=== PATIENT | male | born 1950 | race Caucasian/White ===

== ENCOUNTER 2019-11-22 13:52 | Emergency (ER) | payer OTHER ==
--- NOTE | 2019-11-22 14:23 | RAD REPORT ---
EXAM DESCRIPTION: RAD - Chest Single View - 11/22/2019 2:18 pm CLINICAL HISTORY: synocpe Chest pain. COMPARISON: No comparisons FINDINGS: Portable technique limits examination quality. Interstitial markings are mildly prominent. No focal consolidation typical of pneumonia seen. The hea rt is normal in size. No displaced fractures.
[2019-11-22] MEDS ORDERED: MECLIZINE HCL 12.5 MG TAB ONE (14:31)
[2019-11-22] MEDS ORDERED: ONDANSETRON 4 MG/2 ML VIAL ONE ×2 (14:31→16:02)
[2019-11-22 14:51] LABS: Protime INR 1.07
[2019-11-22 14:52] LABS: Absolute Lymphocytes (CBC) 1.8 K/uL (0.7-4.9); Basophils % 0.6 % (0-1.3); Hematocrit 39.7 % (39.6-49.0); Lymphocytes % 29.5 % (15.3-44.8); MPV 8.9 fL (7.6-11.3); RBC Red Blood Cell Count 4.17 M/uL (4.33-5.43)
--- NOTE | 2019-11-22 14:52 | RAD REPORT ---
EXAM DESCRIPTION: CT - Head Brain Wo Cont - 11/22/2019 2:44 pm CLINICAL HISTORY: DIZZINESS Headache, drowsiness, syncope COMPARISON: No comparisons TECHNIQUE: All CT scans are performed using dose optimization technique as appropriate and may inclu de automated exposure control or mA/KV adjustment according to patient size. FINDINGS: No intracranial hemorrhage, hydrocephalus or extra-axial fluid collection.No areas of brai n edema or evidence of midline shift. The paranasal sinuses and mastoids are clear. The calvarium is intact. IMPRESSION: No acute intracranial abnormality.
[2019-11-22 14:54] LABS: ALT/SGPT 32 U/L (12-78); AST/SGOT 28 U/L (15-37); Albumin 3.1 g/dL (3.4-5.0); Alkaline Phosphatase 44 U/L (45-117); BUN Blood Urea Nitrogen 20 mg/dL (7-18); Bicarbonate 26 mmol/L (21-32); Bilirubin Direct 0.2 mg/dL (0-0.2); Bilirubin Total 0.8 mg/dL (0.2-1.0); Glucose Level 143 mg/dL (74-106); Magnesium 1.8 mg/dL (1.8-2.4); NT PRO-BNP 61 pg/mL (<125); Potassium 3.4 mmol/L (3.5-5.1); Protein, Total 6.3 g/dL (6.4-8.2); Sodium Level 141 mmol/L (136-145); Troponin (Emerg Dept Use Only) < 0.02 ng/mL (0.0-0.045)
[2019-11-22] MEDS ORDERED: POTASSIUM CL SA 10 MEQ TAB PO ONE (16:02)
--- NOTE | 2019-11-22 16:33 | EDPHYS ---
Physician Documentation [facility] Name: Jori Holliday Age: 69 yrs Sex: Male : 1950 Arrival Date: 11/22/2019 Time: 13:58 Bed 19 Private MD: ED Physician Saqib Herr HPI: 11/21 14:45 This 69 yrs old Male presents to ER via EMS with complaints of Syncope. jr8 14:45 The patient has experienced syncope, collapsed. Onset: The symptoms/episode jr8 began/occurred acutely, today. Duration: This was a single episode, that lasted an unknown period of time. Context: occurred at a store, occurred while the patient was standing. Associated injury: The patient did not suffer any apparent associated injury. Associated signs and symptoms: Pertinent positives: dizziness. Current symptoms: Currently, the patient is not experiencing any symptoms, the patient feels back to baseline, no decreased level of consciousness, no confusion, no dysphasia, no headache, no paralysis, no visual changes. The patient has not experienced similar symptoms in the past. The patient has not recently seen a physician. Denies n/v/d or recent illness. Denies recent sick contacts or recent travel. Stated that he had felt well over the past several days. Historical: - Allergies: 14:06 PENICILLINS; em - PMHx: 14:06 Hyperlipidemia; Hypothyroidism; em - Immunization history:: Adult Immunizations up to date. - Social history:: Smoking status: Patient denies any tobacco usage or history of. ROS: 14:45 Eyes: Negative for injury, pain, redness, and discharge, ENT: Negative for injury, jr8 pain, and discharge, Neck: Negative for injury, pain, and swelling, Cardiovascular: Negative for chest pain, palpitations, and edema, Respiratory: Negative for shortness of breath, cough, wheezing, and pleuritic chest pain, Abdomen/GI: Negative for abdominal pain, nausea, vomiting, diarrhea, and constipation, Back: Negative for injury and pain, MS/Extremity: Negative for injury and deformity, Skin: Negative for injury, rash, and discoloration. 14:45 Neuro: Positive for dizziness, syncope. Exam: 14:45 Head/Face: Normocephalic, atraumatic. Eyes: Pupils equal round and reactive to light, jr8 extra-ocular motions intact. Lids and lashes normal. Conjunctiva and sclera are non-icteric and not injected. Cornea within normal limits. Periorbital areas with no swelling, redness, or edema. ENT: Nares patent. No nasal discharge, no septal abnormalities noted. Tympanic membranes are normal and external auditory canals are clear. Oropharynx with no redness, swelling, or masses, exudates, or evidence of obstruction, uvula midline. Mucous membranes moist. Neck: Trachea midline, no thyromegaly or masses palpated, and no cervical lymphadenopathy. Supple, full range of motion without nuchal rigidity, or vertebral point tenderness. No Meningismus. Cardiovascular: Regular rate and rhythm with a normal S1 and S2. No gallops, murmurs, or rubs. Normal PMI, no JVD. No pulse deficits. Respiratory: Lungs have equal breath sounds bilaterally, clear to auscultation and percussion. No rales, rhonchi or wheezes noted. No increased work of breathing, no retractions or nasal flaring. Abdomen/GI: Soft, non-tender, with normal bowel sounds. No distension or tympany. No guarding or rebound. No evidence of tenderness throughout. Back: No spinal tenderness. No costovertebral tenderness. Full range of motion. Skin: Warm, dry with normal turgor. Normal color with no rashes, no lesions, and no evidence of cellulitis. MS/ Extremity: Pulses equal, no cyanosis. Neurovascular intact. Full, normal range of motion. Neuro: Awake and alert, GCS 15, oriented to person, place, time, and situation. Cranial nerves II-XII grossly intact. Motor strength 5/5 in all extremities. Sensory grossly intact. Cerebellar exam normal. Normal gait. Vital Signs: 13:59 BP 122 / 80; Pulse 66; Resp 18; Temp 97.7; Pulse Ox 99% on R/A; Weight 74.84 kg; Height em 5 ft. 9 in. (175.26 cm); Pain 0/10; 13:59 Body Mass Index 24.37 (74.84 kg, 175.26 cm) em MDM: 14:02 Patient medically screened. jr8 16:29 Differential Diagnosis: cardiac arrhythmia, cerebrovascular accident, drug effect, jr8 emotional response, GI bleed, idiopathic syncope, pseudo seizure, seizure, sepsis, transient ischemic attack, vasovagal episode. Data reviewed: vital signs, nurses notes, lab test result(s), EKG, radiologic studies, CT scan, plain films, and as a result, I will discharge patient. Data interpreted: Pulse oximetry: on room air is 99 %. Interpretation: normal. Counseling: I had a detailed discussion with the patient and/or guardian regarding: the historical points, exam findings, and any diagnostic results supporting the discharge/admit diagnosis, lab results, radiology results, the need for outpatient follow up, a family practitioner, to return to the emergency department if symptoms worsen or persist or if there are any questions or concerns that arise at home. Response to treatment: the patient's symptoms have resolved after treatment, patient is well hydrated. 11/21 14:03 Order name: Basic Metabolic Panel; Complete Time: 15: [facility] 11/21 14:03 Order name: CBC with Diff; Complete Time: 15: [facility] 11/21 14:03 Order name: LFT's; Complete Time: 15: [facility] 11/21 14:03 Order name: Magnesium; Complete Time: 15: [facility] 11/21 14:03 Order name: NT PRO-BNP; Complete Time: 15: [facility] 11/21 14:03 Order name: PT-INR; Complete Time: 15: [facility] 11/21 14:03 Order name: Troponin (emerg Dept Use Only); Complete Time: 15:04 [facility] 11/21 14:03 Order name: XRAY Chest (1 view) [facility] 11/21 14:26 Order name: CT Head Brain wo Cont; Complete Time: 16:23 [facility] 11/21 14:31 Order name: Glucose, Ancillary Testing; Complete Time: 14:32 EDMS 11/21 15:37 Order name: RAD; Complete Time: 15:53 EDMS 11/21 14:03 Order name: EKG; Complete Time: 14:05 [facility] 11/21 14:03 Order name: Cardiac monitoring; Complete Time: 14:11 [facility] 11/21 14:03 Order name: EKG - Nurse/Tech; Complete Time: 15:28 11/21 14:03 Order name: IV Saline Lock; Complete Time: 14:11 11/21 14:03 Order name: Labs collected and sent; Complete Time: 14: [facility] 11/21 14:03 Order name: O2 Per Protocol; Complete Time: 14:11 jr8 11/21 14:03 Order name: O2 Sat Monitoring; Complete Time: 14:10 jr8 Administered Medications: 14:03 Not Given (Physician Discretion): NS 0.9% 250 ml IV at bolus once jr8 14:11 Drug: NS 0.9% 1000 ml Route: IV; Rate: 1000 ml; Site: right antecubital; em 16:34 Follow up: IV Status: Completed infusion; IV Intake: 1000ml em 14:30 Drug: Zofran (Ondansetron) 4 mg Route: IVP; Site: right antecubital; em 15:11 Follow up: Response: No adverse reaction; Nausea is decreased em 15:04 Drug: Meclizine 25 mg Route: PO; em 16:32 Follow up: Response: No adverse reaction; Marked relief of symptoms em 16:32 Drug: Potassium Chloride 40 mEq Route: PO; em 16:33 Follow up: Response: Medication administered at discharge. em Point of Care Testing: Ranges: Critical Glucose Levels:Adult <50 mg/dl or >400 mg/dl <40 mg/dl or >180 mg/dl Disposition: 16:57 Co-signature as Attending Physician, Saqib Herr MD. rn Disposition: 11/22/19 16:32 Discharged to Home. Impression: Syncope and collapse, Chronic kidney disease, stage 3 (moderate). - Condition is Stable. - Discharge Instructions: Orthostatic Hypotension, Syncope. - Prescriptions for Meclizine 25 mg Oral Tablet - take 1 tablet by ORAL route every 8 hours As needed; 30 tablet. - Medication Reconciliation Form, Thank You Letter, Antibiotic Education, Prescription Opioid Use form. - Follow up: Private Physician; When: 2 - 3 days; Reason: Recheck today's complaints, Continuance of care, Re-evaluation by your physician. - Problem is new. - Symptoms have improved. Signatures: Dispatcher [employer] Ziggy Garcia RN RN em Nieto, Roman, MD MD rn Roszak, Josh, PA PA jr8 Corrections: (The following items were deleted from the chart) 16:57 16:32 11/22/2019 16:32 Discharged to Home. Impression: Syncope and collapse; Chronic em kidney disease, stage 3 (moderate). Condition is Stable. Forms are Medication Reconciliation Form, Thank You Letter, Antibiotic Education, Prescription Opioid Use. Follow up: Private Physician; When: 2 - 3 days; Reason: Recheck today's complaints, Continuance of care, Re-evaluation by your physician. Problem is new. Symptoms have improved. jr8
--- NOTE | 2019-11-22 16:33 | ER ---
Nurse's Notes [facility] Name: Jori Holliday Age: 69 yrs Sex: Male : 1950 Arrival Date: 11/22/2019 Time: 13:58 Bed 19 Private MD: Diagnosis: Syncope and collapse;Chronic kidney disease, stage 3 (moderate) Presentation: 11/21 13:59 Chief complaint: Patient states: called out for syncopal episode at the grocery store, em was assisted down, denies pain, reported dizziness, initial BP was 84/50 on scene, denies cough or fever, received 400 mL NS LAMINATOR HAND, BGL "normal". Coronavirus screen: Patient denies fever greater than 100.4F, cough, shortness of breath, or difficulty breathing. Proceed with normal triage process. Ebola Screen: Patient negative for fever greater than or equal to 101.5 degrees Fahrenheit, and additional compatible Ebola Virus Disease symptoms Patient denies exposure to infectious person. Patient denies travel to an Ebola-affected area in the 21 days before illness onset. No symptoms or risks identified at this time. Initial Sepsis Screen: Does the patient meet any 2 criteria? No. Patient's initial sepsis screen is negative. Does the patient have a suspected source of infection? No. Patient's initial sepsis screen is negative. Risk Assessment: Do you want to hurt yourself or someone else? Patient reports no desire to harm self or others. 13:59 Method Of Arrival: EMS: [facility] em 13:59 Acuity: MARISABEL 2 em Historical: - Allergies: 14:06 PENICILLINS; em - PMHx: 14:06 Hyperlipidemia; Hypothyroidism; em - Immunization history:: Adult Immunizations up to date. - Social history:: Smoking status: Patient denies any tobacco usage or history of. Screenin:59 Abuse screen: Denies threats or abuse. Nutritional screening: No deficits noted. em Tuberculosis screening: No symptoms or risk factors identified. Fall Risk None identified. Assessment: 13:59 General: Appears in no apparent distress. uncomfortable, well groomed, well developed, em well nourished, Behavior is calm, cooperative, appropriate for age. Pain: Denies pain. Neuro: Level of Consciousness is awake, alert, obeys commands, Oriented to person, place, time, situation, Appropriate for age Reports dizziness, a syncopal episode Denies headache. Cardiovascular: Rhythm is sinus rhythm. Respiratory: Airway is patent Respiratory effort is even, unlabored, Respiratory pattern is regular, symmetrical. GI: Abdomen is flat, Reports nausea, Patient currently denies vomiting. Derm: Skin is intact, is healthy with good turgor, Skin is pink, warm \\T\\ dry. Musculoskeletal: Capillary refill < 3 seconds, Range of motion: intact in all extremities. 15:00 Reassessment: Patient appears in no apparent distress at this time. Patient and/or em family updated on plan of care and expected duration. Pain level reassessed. Patient is alert, oriented x 3, equal unlabored respirations, skin warm/dry/pink. 16:24 Reassessment: Patient appears in no apparent distress at this time. Patient and/or em family updated on plan of care and expected duration. Pain level reassessed. Patient is alert, oriented x 3, equal unlabored respirations, skin warm/dry/pink. nausea has improved Patient states feeling better. Patient states symptoms have improved. Vital Signs: 13:59 BP 122 / 80; Pulse 66; Resp 18; Temp 97.7; Pulse Ox 99% on R/A; Weight 74.84 kg; Height em 5 ft. 9 in. (175.26 cm); Pain 0/10; 13:59 Body Mass Index 24.37 (74.84 kg, 175.26 cm) em ED Course: 13:58 Patient arrived in ED. em 13:59 Patient has correct armband on for positive identification. Bed in low position. Call em light in reach. 13:59 Arm band placed on. em 13:59 Maintain EMS IV. Dressing intact. Good blood return noted. Site clean \\T\\ dry. Gauge \\T\\ em site: 18 RAC. 14:02 Tico Brandt PA is PHCP. jr8 14:02 Saqib Herr MD is Attending Physician. jr8 14:04 Triage completed. em 14:10 Ziggy Licea, ANNEMARIE is Primary Nurse. em 15:05 CT Head Brain wo Cont In Process Unspecified. EDMS 16:32 No provider procedures requiring assistance completed. IV discontinued, intact, em bleeding controlled, No redness/swelling at site. Pressure dressing applied. Administered Medications: 14:03 Not Given (Physician Discretion): NS 0.9% 250 ml IV at bolus once jr8 14:11 Drug: NS 0.9% 1000 ml Route: IV; Rate: 1000 ml; Site: right antecubital; em 16:34 Follow up: IV Status: Completed infusion; IV Intake: 1000ml em 14:30 Drug: Zofran (Ondansetron) 4 mg Route: IVP; Site: right antecubital; em 15:11 Follow up: Response: No adverse reaction; Nausea is decreased em 15:04 Drug: Meclizine 25 mg Route: PO; em 16:32 Follow up: Response: No adverse reaction; Marked relief of symptoms em 16:32 Drug: Potassium Chloride 40 mEq Route: PO; em 16:33 Follow up: Response: Medication administered at discharge. em Point of Care Testing: Ranges: Intake: 16:34 IV: 1000ml; Total: 1000ml. em Outcome: 16:32 Discharge ordered by jr8 16:47 Discharged to home ambulatory. em 16:47 Condition: good 16:47 Discharge instructions given to patient, Instructed on discharge instructions, follow up and referral plans. medication usage, Demonstrated understanding of instructions, follow-up care, medications, Prescriptions given X 1. 16:57 Patient left the ED. em Signatures: Dispatcher [employer] Ziggy Garcia RN RN em Tico Brandt PA PA jr8
[2019-11-22 17:12] VITALS: BP 122/80; TEMP 97.7; O2SAT 99
--- NOTE | 2019-11-23 10:04 | EKG ---
Test Date: 2019-11-22 Test Time: 14:14:27 Sewage Disposal Worker: ARIELA MEASUREMENT RESULTS: Intervals: Rate: 66 CO: 184 QRSD: 82 QT: 436 QTc: 457 [place]: P: 57 CO: 184 QRS: 69 T: 11 INTERPRETIVE STATEMENTS: Normal sinus rhythm Low voltage QRS Cannot rule out Anterior infarct, age undetermined Abnormal ECG No previous ECG available for comparison Electronically Signed On 11-23-19 10:02:57 CDT by Kota Miller
== END 2019-11-22 16:57 | disposition home or self-care (01) ==
LOC: ER 13:52
DX: N18.3 Chronic kidney disease, stage 3 (moderate) (principal); Z88.0 Allergy status to penicillin
CPT/HCPCS: 96361; 93005; 85025; 80048; 36415; 83735; 85610; 82947; 80076; 84484; 83880; 70450; 71045; 96374; 99284; J2405 ×2; J8597